=== PATIENT | female | born 1985 | race Caucasian/White ===

== ENCOUNTER → 2021-01-18 | Outpatient (REF) | payer OTHER | LOC: M LAB REF 16:01 | PROVIDERS: ATTEND Physician Assistant | DX: N39.0 Urinary tract infection, site not specified (principal) ==

== ENCOUNTER → 2022-07-18 | Outpatient (CLI) | payer OTHER | LOC: M WUC 10:08 | PROVIDERS: ATTEND Physician Assistant | DX: M79.672 Pain in left foot (principal) ==